=== PATIENT | male | born 1950 | race Caucasian/White ===

== ENCOUNTER 2016-11-28 22:24 | Emergency (ER) | payer MEDICARE, BC ==
[2016-11-28] MEDS ORDERED: Lidocaine 2% 20 ML MDV INJECT ONE (22:45)
[2016-11-28 22:48] VITALS: BP 148/89
--- NOTE | 2016-11-28 22:51 | EDM.PDOC ---
ED HPI GENERAL MEDICAL PROBLEM - General Chief Complaint: Upper Extremity Injury/Pain Stated Complaint: RIGHT HAND,RING FINGER NAIL INJURY Time Seen by Provider: 11/28/16 22:40 Source of Information: Reports: Patient History Limitations: Reports: No Limitations - History of Present Illness INITIAL COMMENTS - FREE TEXT/NARRATIVE: 66 yo male fell earlier this evening on some wet steps and nearly tore off his R ring finger nail. Tetanus is UTD. Here for evaluation. 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 (see below) (bandages applied to control bleeding.) Right Hand Pain Score (Numeric/FACES): 2 - Related Data Allergies Allergy/AdvReac Type Severity Reaction Status Date / Time shrimp Allergy Hives Uncoded 11/28/16 22:49 Home Meds: Home Meds Aspirin [Adult Low Dose Aspirin EC] 81 mg PO DAILY 11/28/16 [History] Losartan/Hydrochlorothiazide [Losartan-HCTZ 100-25 MG] 1 tab PO DAILY 11/28/16 [ History] atorvaSTATin [Lipitor] 10 mg PO DAILY 11/28/16 [History] Review of Systems - Review of Systems Review Of Systems: See Below Constitutional: Reports: No Symptoms Musculoskeletal: Reports: No Symptoms Skin: Reports: Change in Hair/Nails (R ring finger nail partially avulsed.) Neurological: Reports: No Symptoms ED EXAM, GENERAL - Physical Exam Exam: See Below Exam Limited By: No Limitations General Appearance: Alert, WD/WN, No Apparent Distress Neurological: Alert, Oriented, CN II-XII Intact, Normal Cognition, No Motor/ Sensory Deficits Psychiatric: Normal Affect, Normal Mood Skin Exam: Warm, Dry, Normal Color, No Rash, Other (R ring finger nail is partially avulsed. The proximal portion of that fingernail is exposed. Bleeding controlled on arrival. ) Lymphatic: No Adenopathy Course - Vital Signs Text/Narrative:: Anesth locally with 8 ml of 2% lidocaine. Nail removed completely. One stitch(4- 0 Prolene) was placed on each side of the nail to repair small lacerations. A dressing was then applied. ibuprofen 400 mg po Last Recorded V/S: Last Vital Signs Temp 37 C 11/28/16 22:41 Pulse 95 11/28/16 22:41 Resp 16 11/28/16 22:41 BP 148/89 H 11/28/16 22:41 Pulse Ox 98 11/28/16 22:41 - Orders/Labs/Meds Meds: Medications Discontinued Medications Generic Name Dose Route Start Last Admin Trade Name Alem PRN Reason Stop Dose Admin Ibuprofen 400 mg 11/28/16 23:44 Motrin PO 11/28/16 23:45 ONETIME ONE Lidocaine HCl 10 ml 11/28/16 22:45 11/28/16 23:01 Xylocaine 2% INJECT 11/28/16 22:46 10 ml ONETIME ONE Administration Departure - Departure Time of Disposition: 23:55 Disposition: Home, Self-Care 01 Condition: Good Clinical Impression: Fingernail avulsion, partial Qualifiers: Encounter type: initial encounter Qualified Code(s): S61.309A - Unspecified open wound of unspecified finger with damage to nail, initial encounter - Discharge Information Referrals: PCP,None [Primary Care Provider] - Forms: ED Department Discharge Additional Instructions: Keep hand elevated above your heart to reduce bleeding and pain. Keep hand clean for 72 hrs. Take ibuprofen and/or acetaminophen as needed for pain relief. Clean twice daily with 1/2 water and 1/2 peroxide. Dry. Apply antibiotic ointment and a new dressing. Stitches out in 7-9 days. Recheck sooner for signs of infection.
[2016-11-28] MEDS ORDERED: Ibuprofen 400 MG Tab PO ONE (23:44)
[2016-11-28] MEDS ORDERED: Bacitracin Oint 1 GM U/D Packet ONE (23:45)
== END 2016-11-29 00:16 | disposition home or self-care (01) ==
LOC: JP.ED 22:24
DX: S61.304A Unspecified open wound of right ring finger with damage to nail, initial encounter (principal); Z91.013 Allergy to seafood; Z79.82 Long term (current) use of aspirin; Z79.899 Other long term (current) drug therapy; W10.9XXA Fall (on) (from) unspecified stairs and steps, initial encounter
CPT/HCPCS: 11760; 99283; A9270; 11730; 99282-25